=== PATIENT | female | born 1955 | race Caucasian/White ===

== ENCOUNTER → 2016-07-13 | Outpatient (CLI) | payer MEDICARE ==
[~2016-07-13] MED LIST: ALDACTONE 25MG25 MG; ALDACTONE 50MG50 MG PO; ANTIVERT GENERI25 MG PO; ASPIRIN 325MG325 MG; BAYER ASPIRIN C81 MG PO; CENTRUM SILVER1 TA2 PO; CLINDAMYCIN300 MG PO; DIAZEPAM5 MG; DIAZEPAM5 MG PO; DICLOFENAC 50MG50 MG PO; IMIPRAMINE50 MG; IMIPRAMINE50 MG PO; KLOR-CON M2020 ME1 PO; LAMICTAL200 MG; LAMICTAL200 MG PO; LASIX40 MG; LASIX40 MG PO; MIRTAZAPINE15 M3 PO; MIRTAZAPINE15 MG PO; NITROGLYCERIN0.4 M1; OXYCODONE/APAP1 TA5; PERCOCET 325 MG1 TA4 PO; POTASSIUM CHLO20 ME2 PO; PROMETHAZINE5 ML/UDC; ROPINIROLE HYDRO1 MG PO; SERTRALINE 100100 MG PO; SERTRALINE100 M1 PO; SIMVASTATIN10 MG; SIMVASTATIN10 MG PO; TIZANIDINE4 MG PO; VITAMIN E400 I1 PO
--- NOTE | 2016-07-14 07:48 | RADIOLOGY REPORT PS360 ---
[id number] VIEWS Ordering Physician: Oz Granda MD Patient Age: 60 years: Female HISTORY: LEFT CHEST WALL PAIN TECHNIQUE: Oblique views left RIBS along with AP lower rib image. Poor quality motion artifact on AP below diaphragm image FINDINGS Previous 2013 study showed a rib fracture at the lateral ninth rib and possibly eighth ribs On today's studies we see slight undulation cortex at the lateral seventh, eighth and eighth rib. Given the prior studies and overall appearance most likely these are minor old healed fractures.. Doubt recent cortical buckle type fracture less at these ribs. If there should be persistent pain consider follow-up rib series as current images are less than optimal for rib evaluation, given motion artifact the lower left ribs and overall technique. . Mild demineralization. . The lungs well expanded and clear with no active disease. No pleural effusion. No focal pleural thickening IMPRESSION: ---- Subtle most likely old undulating rib fractures involving the lateral ninth, eighth and seventh ribs. It Correlation required In 2013 acute Rib fractures identified in the same region However today's studies are somewhat limited & less than suboptimal. If pain should persist progress consider follow-up
--- NOTE | 2016-07-14 07:51 | RADIOLOGY REPORT PS360 ---
CHEST(2 VIEWS-NOT PORTABLE) Ordering Physician: Oz Granda MD Patient Age: 60 years: Female HISTORY: LEFT CHEST WALL PAIN TECHNIQUE: 2 view chest COMPARISON is made to previous 2 view chest 07/12/2010 FINDINGS There is been no significant interval change. Stable chest. Minimal mild hyperexpansion. Mild chronic changes but nothing definitely acute . The left seventh anterior/lateral rib is upper normal in density in part due to overlapping breast tissue and summation. However this may also reflect the site of old fractures involving the left seventh and eighth ribs described on rib series report. No pleural effusion. No pneumothorax. Heart saurav and mediastinal structures unremarkable. IMPRESSION: No active disease in the chest. Stable chest. Subtle increased density dense appearance at the anterolateral seventh and eighth rib suspect reflects the old healed healed rib fractures described on rib series. No convincing acute fracture or findings. If chest pain persist here may warrant CT or further evaluation.
== END ==
LOC: RAD 16:50
DX: R07.89 Other chest pain (principal)

== ENCOUNTER → 2017-01-20 | Outpatient (CLI) | payer MEDICARE ==
--- NOTE | 2017-01-20 13:41 | RADIOLOGY REPORT PS360 ---
HAND-LT-3 VIEWS HISTORY: Pain following injury LEFT HAND INJURY ORDERING PHYSICIAN: Oz Granda MD PATIENT AGE: 61 years COMPARISON: None FINDINGS: There is a healing fracture involving the proximal aspect of the proximal phalanx of the third digit. There is some mild callus formation at this region and minimal dorsal angulation of the distal fracture fragment. No other acute anomalies are evident. IMPRESSION: Healing fracture proximal phalanx of the third digit
== END ==
LOC: RAD 13:11
DX: S69.92XA Unspecified injury of left wrist, hand and finger(s), initial encounter (principal)